=== PATIENT | male | born 1950 | race Caucasian/White ===

== ENCOUNTER → 2016-11-09 | Day surgery (SDC) | payer MEDICARE, BC ==
[2016-05-17 05:30] VITALS: BMI 33.5
[~2016-11-09] MED LIST: DEXAMETHASONE 4 MG/ML VIAL IV ONE; FENTANYL 100 MCG/2 ML VIAL IV PRN; FENTANYL 250 MCG/5 ML VIAL IV ONE; HYDROmorphone 1 MG INJECTION IV PRN; ISOVUE-300 (61%) 50 ML ONE; LABETALOL 20 MG/4 ML SYRINGE IV PRN; LIDOCAINE 100 MG PFS IV ONE; Levofloxacin 500 mg/100 ml D5W 500 MG/100 ML RTU IV ONE; MEPERIDINE 25 MG/ML TUBEX IV PRN; ONDANSETRON HCL 4 MG ODT TAB PO PRN; ONDANSETRON HCL 4 MG/2 ML VIAL IV ONE; ONDANSETRON HCL 4 MG/2 ML VIAL IV PRN; PROMETHAZINE 25 MG/ML VIAL IV PRN; PROPOFOL 200 MG/20 ML VIAL IV ONE; SUCCINYLCHOLINE 20 MG/1 ML INJ 10 ML MDV IV ONE; hydrALAZINE 20 MG/ML VIAL IV PRN
--- NOTE | 2016-11-09 09:15 | SC.ANESPOS ---
Post-Anesthesia Note LOC: [facility] Calling Post-Anesthesia Assessment: Awake, Returned to Baseline, Hemodynamically Stable , Pain Control Adequate Phase I & II Recovery Complete: Yes Apparent Anesthesia Complication: No : N - Vital Signs Blood Pressure: 113/62 Pulse: 45 Resp Rate: 18 O2 Sat: 99 Temp: 97.3 F
--- NOTE | 2016-11-09 09:33 | HIM.ANES ---
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 (11/09/16) Consented Procedure: CYSTOSCOPY, RIGHT RETROGRADE PYELOGRAM,POSSIBLE URETEROSCOPY,DOUBLE J STENT EXCHANGE - Focused Review of Systems Cardiac History: Yes: Hx Cardiac Disorders, Hx Abnormal Cholesterol/ Hyperlipidemia HEENT: Yes: Hx Vision Problem (READING GLASSES), Other HEENT Problems Respiratory: Yes: Hx Snoring, Hx Pneumonia (08/31/15) Gastrointestinal: Yes: Hx Gastroesophageal Reflux Disease (Controlled), Hx Gastrointestinal Disorders, Hx Colonoscopy Neurological/Musculoskeletal: Yes: Hx Neurological Disorders Other Neurological Problems: 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 Psychological: Yes Hx Anxiety, Yes Hx Depression, Yes Hx Mental/Emotional Disorders Blood/Autoimmune: No: Hx AIDS, Hx Hepatitis (type) Smoking Status: Never smoker Hx Chest Xray (date): Yes (10/19/15 RESOLVED) Surgical History: Yes: Ureter Stent (JJ ), Knee (RT TKA 2009) Other Surgical History: COLECTOMY 200412/09/2015 AND 05/2016 CYSTO, RETRO, PYELO,URETEROSCOPY - Focused Physical Exam NPO since: 11/08/161999 Mallampati: Class III Thyromental Distance: Greater than 3 Neck: Full Range of Motion Dental: Removable Dental Work Cardiovascular/Chest: Normal Respiratory: Lungs clear Any problems with anesthesia, including nausea and vomiting?: No Any relatives with a history of Malignant Hyperthermia?: No Beta Harsha given (if appropriate): N/A Does the patient have a history of Motion Sickness-: No Other: Problem List Problem Status Onset Heat exposure Acute Hydrocele Acute Hydronephrosis Acute Ureteral obstruction Acute Weakness Acute Ureteral calculi Chronic Allergies Allergy/AdvReac Type Severity Reaction Status Date / Time No Known Allergies Allergy Verified 11/09/16 09:15 Home Medications Medication Instructions Recorded Last Taken Type Gabapentin [Neurontin] 600 mg PO BID 02/06/13 11/09/16 07:00 History Ranitidine [Zantac] 150 mg PO BID 02/06/13 11/09/16 07:00 History Tamsulosin HCl [Flomax] 0.4 mg PO BID 09/07/15 11/09/16 07:00 History Rosuvastatin Calcium [Crestor] 20 mg PO HS 12/07/15 11/08/16 20:00 History CYANOCOBALAMIN (Vitamin B-12) 1,000 mcg IM .MONTHLY 02/29/16 10/16/16 10:00 History [Vitamin B-12] Citalopram (anti-depressant) 20 mg PO DAILY 02/29/16 11/08/16 08:00 History [Celexa] Aspirin [Aspirin EC] 81 mg PO DAILY 11/08/16 11/09/16 07:00 History Height and Weight Patient's height 5 ft 8 in Patient's weight 224 lb BMI 33.5 Vital Signs Temperature 97.3 F L 11/09/16 09:15 Pulse Rate 45 L 11/09/16 09:15 Respiratory Rate 18 11/09/16 09:15 Blood Pressure 113/62 11/09/16 09:15 Pulse Oxygen Saturation 99 11/09/16 09:15 - Anesthetic Plan Anesthesia Type: General ASA Class: 2 -: I have examined this patient and reviewed the medical record. The patient has been assessed prior to anesthesia. Risks and benefits of anesthesia and anesthetic technique options have been discussed and all questions answered. The patient accepts the risk and desires me to proceed with the planned anesthetic.
--- NOTE | 2016-11-09 11:42 | HIMOPRPT ---
SURGEON: DATE OF PROCEDURE: 11/09/16 PREOPERATIVE DIAGNOSIS: Right hydronephrosis and ureteral stricture. POSTOPERATIVE DIAGNOSIS: Right hydronephrosis and ureteral stricture. PROCEDURE PERFORMED: Cystoscopy, right retrograde pyelogram, and stent exchange. SURGEON: Aron Hardwick MD ANESTHESIA USED: General. INDICATION FOR PROCEDURE: The patient is an 66 WHITE M with a history of renal lithiasis and right ureteral stricture. He has had an indwelling stent and is brought in now for stent exchange . PROCEDURE IN DETAIL: The patient was brought into the operating room, placed on the table in the supine position. After adequate general anesthesia was achieved , the patient was carefully placed in dorsal lithotomy and the perineum prepped and draped in sterile fashion for the performance of cystoscopy. Initially, the 23-Bulgarian scope was passed under direct vision through the urethra and into the bladder. Prostatic urethra was approximately 2-3 cm in length with minimal lateral hypertrophy and mild median bar. Inspection revealed the bladder to be intact and no lesions noted. Previously placed stent was visualized. A Nitinol wire was then able to be worked through the stent up the ureter and it was seen to curl fluoroscopically in the kidney. The wire then remained in place and the previously placed stent was removed intact and easily. Open-ended catheter was then placed over the wire up into the kidney. Urine was collected for culture and sensitivity. The wire was removed and using 3-4 cc of contrast, retrograde pyelogram was obtained, which showed the calices to be hydronephrotic as well as the pelvis. The ureter measured approximately 22 cm. A wire was placed through the catheter , I removed the open-ended catheter, wire remained in place. Over the wire, then the 6-Bulgarian 22 cm stent was placed, it was seen to curl fluoroscopically in the kidney and then visually in the bladder. At this point, then the procedure was terminated. The bladder was filled. Cystoscope removed. A 16- Bulgarian Jang placed to drain the bladder. The patient tolerated all this well. The patient was then awakened and taken to the recovery room in good condition.
[2016-11-09 15:19] VITALS: BP 113/62; PULSE 45; TEMP 97.3
== END ==
LOC: SDC 08:37
PROVIDERS: ATTEND Urology
PROC: BT1DZZZ Fluoroscopy of Right Kidney, Ureter and Bladder (ICD-10-PCS; 2016-11-09)
PROC: 0TP98DZ Removal of Intraluminal Device from Ureter, Via Natural or Artificial Opening Endoscopic (ICD-10-PCS; 2016-11-09)
PROC: 0T778DZ Dilation of Left Ureter with Intraluminal Device, Via Natural or Artificial Opening Endoscopic (ICD-10-PCS; principal; 2016-11-09 12:00)
DX: N13.1 Hydronephrosis with ureteral stricture, not elsewhere classified (principal); Z87.442 Personal history of urinary calculi; Z79.82 Long term (current) use of aspirin; Z79.899 Other long term (current) drug therapy; N40.1 Benign prostatic hyperplasia with lower urinary tract symptoms; Z12.5 Encounter for screening for malignant neoplasm of prostate
CPT/HCPCS: 52332; 87086; J0330; J1100; J1956; J2001; J2405; J3010; J3490